=== PATIENT | male | born 1965 | race Caucasian/White ===

== ENCOUNTER 2022-03-27 12:50 | Emergency (ER) | payer OTHER, SELFPAY ==
[2022-03-27] VITALS (8 sets, daily range): BP systolic 119–133; BP diastolic 80–93; PULSE 70–84; RESP 18–22; TEMP 36; O2SAT 100; BMI 23.0
[2022-03-27] MEDS: NITROGLYCERIN 0.4 MG TAB.SUBL SUBLINGUAL (13:03)
--- NOTE | 2022-03-27 13:03 | CRLHL7_ITS ---
For Patients: As a result of the 21st Century Cures Act, medical imaging exams and procedure reports are released immediately into your electronic medical record. You may view this report before your referring provider. If you have questions, please contact your health care provider. INDICATION: CHEST PAIN, LEFT LEG PAIN TECHNIQUE: CT chest without contrast and CT chest, abdomen and pelvis acquired with 95cc ISOVUE 370 IV contrast, dissection protocol. COMPARISON: None. FINDINGS: CHEST: Cardiovascular structures: The unenhanced images demonstrate no evidence of aortic intramural hematoma. Subtle crescent-shaped area of hypoattenuation near the aortic root (series 6, image 103). This is favored to represent pulsation artifact and not a true dissection. However, if there is further clinical concern EKG gated re-imaging could be considered. Otherwise, the entire aorta is normal in caliber and there is no sign of aortic dissection. Heart size is normal. Left chest wall cardiac device with leads in place. Mediastinum and katey: No mass or adenopathy. Lungs and pleura: Lungs are clear. No pleural effusions. Mild pulmonary emphysema. Chest wall and axilla: No mass or adenopathy. Bones: Unremarkable for age. ABDOMEN AND PELVIS: Liver: Unremarkable. Gallbladder and bile ducts: Unremarkable. Pancreas: Unremarkable. Spleen: Unremarkable. Adrenal glands: Unremarkable. Kidneys: Bilateral nonobstructing renal calculi with the largest on the left measuring 8 mm. . GI tract: Unremarkable. Vascular structures: Abdominal aorta is of normal caliber without evidence of dissection. Mild scattered atherosclerosis. Imaged portions of the left femoral arterial system are patent and normal caliber.. Lymph nodes: Unremarkable. Miscellaneous: Unremarkable. No free air or significant free fluid. Pelvic Organs: Unremarkable. Bones: Milder spondylosis of the lumbar spine. Bilateral L5 sacralization. IMPRESSION: Subtle crescent-shaped area of hypoattenuation near the aortic root (series 6, image 103). This is favored to represent pulsation artifact and not a true dissection. However, if there is further clinical concern EKG gated re-imaging of SAMI could be considered. Otherwise, the entire aorta is normal in caliber and there is no sign of aortic dissection. Mild pulmonary emphysema. Bilateral nonobstructing renal calculi with the largest on the left measuring 8 mm. Please note that all CT scans at this facility use dose modulation, iterative reconstruction, and/or weight-based dosing when appropriate to reduce radiation dose to as low as reasonably achievable. Dictated by Mitchel Mcgarry MD @ 03/27/2022 2:11:02 PM (Electronically Signed)
[2022-03-27] MEDS: MORPHINE 4 MG/ML INJ IVP (13:05)
[2022-03-27] MEDS: LORazepam 2 MG/ML inj 0.5 MG IVP ×2 (13:07→15:36)
--- NOTE | 2022-03-27 13:07 | ED_ITS ---
HPI - Chest Pain General Time Seen by Provider: 12:50 Date Seen: 03/27/22 Chief Complaint: Chest Pain Stated Complaint: chest pain Time Seen by Provider: 03/27/22 12:51 Source: patient, EMS, RN notes reviewed and old records reviewed Mode of arrival: EMS Limitations: no limitations History of Present Illness HPI narrative: Hayden is a very pleasant 57-year-old gentleman status post AL x2 and defibrillator placement who is brought to the emergency room for chest pain. Patient noted the onset of shortness of breath this morning with associated left anterior chest pain with radiation into the neck. Patient was noted to have 2 episodes of emesis upon his arrival here. He had been given nitro x2 with relief only on the 1st nitro tablet. He was also given morphine 4 mg. Patient thinks that the initial nitro worked almost immediately and that the oxygen he has in place right now is also helping. He agrees that he has new pain today radiating into his left leg. He denies any recent injury. As we are speaking he thinks that his chest pain is improving but states there is still tightness there at this time. In addition patient received aspirin 324 mg p.o.. Patient notes no unusual activity recently. He states he did mow the lawn last night and did have 6 beers. He notes that he has recently gotten out of treatment for alcohol use and that he has ?been struggling?. MD complaint: chest pain Pertinent past history: coronary artery disease and prior AL Onset (ago): minute(s) Timing of current episode: constant Onset: during rest Pain location: left chest Pain radiation: neck Severity: moderate Quality: tightness Relieving factors: nitroglycerin Related Data Home Medications Medication Instructions Recorded Confirmed Claritin 03/27/22 amlodipine 10 mg tablet mg 03/27/22 aspirin 81 mg chewable tablet 03/27/22 fluoxetine 20 mg capsule mg 03/27/22 naltrexone 50 mg tablet mg 03/27/22 ondansetron 8 mg disintegrating mg 03/27/22 tablet trazodone 100 mg tablet mg 03/27/22 Allergies Allergy/AdvReac Type Severity Reaction Status Date / Time No Known Drug Allergies Allergy Verified 03/27/22 13:21 Review of Systems Status of ROS Reports: 10 or more systems reviewed and unremarkable except as noted in History and below Const Denies: fever or chills Eyes Denies: change in vision ENMT Reports: neck pain; Denies: throat pain or difficulty swallowing Cardio Reports: chest pain and shortness of breath with exertion; Denies: swelling of feet/ankles Resp Reports: shortness of breath; Denies: cough or wheezing GI Denies: difficulty swallowing Denies: painful urination Musculo Reports: neck pain; Denies: back pain Neuro Reports: other (Left leg pain); Denies: headache or weakness in extremities Endo Denies: excessive urination or excessive thirst Allergy/Immuno Denies: wheezing PFSH PFSH Social History Smoking Status: Current every day smoker How often do you have a drink containing alcohol: 4 or more times a week AUDIT-C Alcohol total score: 4 Non-prescribed substance use: denies use Exam Const Vital Signs, click to edit/add: Vital Signs - 24 hr 03/27/22 13:06 03/27/22 13:00 03/27/22 13:05 Temperature 96.8 F L Pulse Rate [Right Pulse Oximeter] 73 70 81 Respiratory Rate 18 22 Blood Pressure [Left Upper Arm] 119/80 127/84 128/80 Pulse Oximetry 100 100 100 Oxygen Delivery Method Nasal Cannula Nasal Cannula Nasal Cannula 03/27/22 13:23 03/27/22 13:25 03/27/22 13:30 Temperature Pulse Rate [Right Pulse Oximeter] 84 84 84 Respiratory Rate 18 18 18 Blood Pressure [Left Upper Arm] 133/93 H 132/81 129/85 Pulse Oximetry 100 100 100 Oxygen Delivery Method Nasal Cannula Nasal Cannula Nasal Cannula 03/27/22 13:35 03/27/22 13:40 Temperature Pulse Rate [Right Pulse Oximeter] 78 82 Respiratory Rate 18 18 Blood Pressure [Left Upper Arm] 127/84 129/83 Pulse Oximetry 100 100 Oxygen Delivery Method Nasal Cannula Nasal Cannula Documenting provider has reviewed patient's vital signs: yes Common normals: average body habitus, oriented x3 and no limitations General appearance: cooperative, anxious and diaphoretic [facility] Common normals: normocephalic, head/scalp atraumatic, external ears normal and external nose normal Head and scalp: normocephalic and atraumatic Face and sinus: normal facial exam Nose: external nose normal External ear: external ears normal Eye General eye: normal appearance of both eyes Neck & C-Spine Common normals: full ROM and supple General: normal visual inspection and trachea midline Resp Common normals: normal respiratory effort and clear to auscultation bilaterally Auscultation: clear to auscultation bilaterally Cardio Common normals: regular rate and regular rhythm Rate: regular rate Rhythm: regular rhythm GI Common normals: soft to palpation, non-tender and no masses Palpation: soft Extremity Common normals: full ROM, no joint enlargement, no calf tenderness and no pedal edema Other: Question decreased right lower extremity pedal pulses. Neuro Common normals: oriented x3 Psych Common normals: mental status grossly normal and thought process normal Thought process: normal thought process Skin Common normals: no rashes or lesions noted General skin exam: no rashes or lesions noted Course Course Hospital Course: Given onset of chest pain with reassuring EKG we have made the decision to go through with an aortic dissection protocol. Prior to this patient will receive morphine 4 mg, 3rd nitroglycerin tablet as well as Ativan 0.5 mg. Patient notes increased alcohol use after having gone through recent treatment so certainly we should consider peptic ulcer or other GI pathology. Will also consider non STEMI as well. Will obtain COVID swab as well as CBC, comprehensive panel, D- dimer, CRP, urinalysis, alcohol level, troponin, EKG. Differential diagnosis also includes but is not limited to esophagitis, biliary colic, alcohol withdrawal, pneumonia, COVID. Reevaluation(s) Reevaluation #1: At this time patient is feeling much improved. CT of the chest shows a questionable area of decreased feeling. Possibly related to aortic pathology. Patient was given an additional 0.5 mg of IV Ativan and we are currently awaiting cardiothoracic consultation from [facility]. We have push the CT for their viewing. Noted 4+ urinary ketones and therefore additional L of fluids is given for a total of 2. Reevaluation #2: At this time patient continues to be pain-free. Consultations Consultation #1: Dr. Ren and Dr. Zaman are both cardiothoracic surgeons at [facility]. I had the pleasure of speaking to them in regards to the CT of the chest that showed questionable abnormality at the aortic root. Given the radiology findings it does not appear that this is a true aortic dissection. I then spoke with Dr. Sahu, cardiology at [facility], who notes that he feels it is safe to give heparin after we discuss the CT but elevating troponins. Unfortunately, unable to accept this patient as they are currently on magenta and patient is not eligible for their waiting list given that we are not in [facility]. Consultation #2: Had the pleasure of speaking to Dr. Cuellar, hospitalist for [facility]. We discussed patient's recent treatment for alcohol, recent alcohol use as well as the results of the CT. At this time because patient is pain-free will hold off from any treatment with heparin. Patient has been accepted by [facility] for hospitalization. Vital Signs Vital signs: Initial Vital Signs Pulse Rate 70 03/27/22 13:00 Pulse Rhythm 03/27/22 13:00 Respiratory Rate 22 03/27/22 13:00 Respiratory Effort Spontaneous 03/27/22 13:00 Respiratory Depth Normal 03/27/22 13:00 Blood Pressure 127/84 03/27/22 13:00 Blood Pressure Mean 98 03/27/22 13:00 Blood Pressure Position Supine 03/27/22 13:00 Pulse Oximetry 100 03/27/22 13:00 Oxygen Delivery Method 03/27/22 13:00 Vital Signs Pulse Rate 70 03/27/22 13:00 Respiratory Rate 22 03/27/22 13:00 Blood Pressure 127/84 03/27/22 13:00 Pulse Oximetry 100 03/27/22 13:00 Oxygen Delivery Method 03/27/22 13:00 Temperature 96.8 F L 03/27/22 13:06 Pulse Rate 82 03/27/22 13:40 Respiratory Rate 18 03/27/22 13:40 Blood Pressure 129/83 03/27/22 13:40 Pulse Oximetry 100 03/27/22 13:40 Oxygen Delivery Method 03/27/22 13:40 MDM - Chest Pain MDM Narrative Medical decision making narrative: 1. Non STEMI-EKGs remain normal but troponin has gone from 0-0.19. Patient received a total of 3 nitroglycerin tablets as well as morphine 4 mg x 2 and aspirin. Patient also received Ativan 0.5 mg x 2. He has been pain-free for a number of hours. I spoke with [facility] who was unable to accept patient. I spoke with both cardiothoracic given the questionable artifact verses abnormality at the aortic root. They do not feel that this is abnormal but is artifact. I also spoke with cardiology who was unable to take the patient. [facility] in [place] was able to accept the patient. At this time will hold off on any heparin or ticagrelor as patient has been pain-free. We are unable to push our CT 2 their system but will instead give a disc to take with. 2. Alcohol use-patient has discussed with nursing staff that he has been drinking beer approximately 6 cans a day for 5 days. Patient was not tachycardic nor did he have hypertension during his stay here but I do wonder if he does have some mild withdrawal per going on. Again improved after Ativan. 3. Disposition-ground ambulance ALS transfer to [facility]. Medical Records Data Attestation: I reviewed the patient's medical records. Lab Data Attestation: I reviewed the patient's lab results. Labs: Lab Results 03/27/22 03/27/22 03/27/22 Range/Units 13:00 13:01 13:01 WBC 12.73 H (4.50-11.00) K/uL RBC 4.97 (4.30-5.90) m/uL Hgb 16.4 (13.5-17.5) gm/dL Hct 47.3 (37.0-53.0) % MCV 95 (80-100) fL MCH 33 (26-34) pg MCHC 35 (32-36) gm/dL RDW Coeff of Navin 15.6 H (11.5-15.5) % Plt Count 319 (140-440) K/uL Neut % (Auto) 80.7 H (42.0-72.0) % Lymph % (Auto) 13.7 L (20-44) % [place] % (Auto) 5.1 (0.0-11.0) % Eos % (Auto) 0.0 (0.0-7.0) % Baso % (Auto) 0.3 (0.0-3.0) % Neut # (Auto) 10.30 H (1.7-7.0) K/uL Lymph # (Auto) 1.70 (0.90-2.90) K/uL [place] # (Auto) 0.60 (0.00-0.90) K/UL Eos # (Auto) 0.00 (0.00-0.50) K/uL Baso # (Auto) 0.00 (0.00-0.30) K/uL Abs Immat Gran (auto) 0.03 (0.00-0.30) K/uL D-Dimer Quant (PE/DVT) 0.44 (0.00-0.50) ug/ml Sodium (135-149) mmol/L Potassium (3.6-5.1) mmol/L Chloride (96-114) mmol/L Carbon Dioxide (20-32) mmol/L BUN (7-30) mg/dL Creatinine (0.5-1.5) mg/dL Estimated Creat Clear Estimated GFR ml/min Glucose (60-115) mg/dL Calcium (8.4-10.6) mg/dL Total Bilirubin (0.1-1.5) mg/dL AST (12-35) U/L ALT (4-50) U/L Alkaline Phosphatase (40-150) U/L C-Reactive Protein (0.5-1.0) mg/dL Total Protein (6.0-8.3) g/dL Albumin (3.3-5.0) g/dL Urine Color (Yellow) Urine Appearance (Clear) Urine pH (5.0-8.5) Ur Specific [place] (1.000-1.030) Urine Protein (Negative) Urine Glucose (UA) (Negative) Urine Ketones (Negative) Urine Blood (Negative) Urine Nitrite (Negative) Urine Bilirubin (Negative) Urine Urobilinogen (0.2-1.0) Ur Leukocyte Esterase (Negative) Urine RBC (0-2) Urine WBC (0-5) Ur Squamous Epith Cells (None-Few) Urine Bacteria (None) Ethyl Alcohol (0.01-0.03) % SARS-CoV-2 (PCR) (Negative) Influenza Type A (PCR) (Negative) Influenza Type B (PCR) (Negative) POC Troponin I 0.00 L (0.01-0.04) ng/ml 03/27/22 03/27/22 03/27/22 Range/Units 13:01 13:55 15:05 WBC (4.50-11.00) K/uL RBC (4.30-5.90) m/uL Hgb (13.5-17.5) gm/dL Hct (37.0-53.0) % MCV (80-100) fL MCH (26-34) pg MCHC (32-36) gm/dL RDW Coeff of Navin (11.5-15.5) % Plt Count (140-440) K/uL Neut % (Auto) (42.0-72.0) % Lymph % (Auto) (20-44) % [place] % (Auto) (0.0-11.0) % Eos % (Auto) (0.0-7.0) % Baso % (Auto) (0.0-3.0) % Neut # (Auto) (1.7-7.0) K/uL Lymph # (Auto) (0.90-2.90) K/uL [place] # (Auto) (0.00-0.90) K/UL Eos # (Auto) (0.00-0.50) K/uL Baso # (Auto) (0.00-0.30) K/uL Abs Immat Gran (auto) (0.00-0.30) K/uL D-Dimer Quant (PE/DVT) (0.00-0.50) ug/ml Sodium 138 (135-149) mmol/L Potassium 4.2 (3.6-5.1) mmol/L Chloride 103 (96-114) mmol/L Carbon Dioxide 13 L (20-32) mmol/L BUN 16 (7-30) mg/dL Creatinine 1.0 (0.5-1.5) mg/dL Estimated Creat Clear 84.67 Estimated GFR 88 ml/min Glucose 113 (60-115) mg/dL Calcium 9.3 (8.4-10.6) mg/dL Total Bilirubin 0.7 (0.1-1.5) mg/dL AST 53 H (12-35) U/L ALT 50 (4-50) U/L Alkaline Phosphatase 134 (40-150) U/L C-Reactive Protein < 0.5 L (0.5-1.0) mg/dL Total Protein 7.3 (6.0-8.3) g/dL Albumin 4.6 (3.3-5.0) g/dL Urine Color Yellow (Yellow) Urine Appearance Clear (Clear) Urine pH 6.0 (5.0-8.5) Ur Specific [place] 1.015 (1.000-1.030) Urine Protein Negative (Negative) Urine Glucose (UA) Negative (Negative) Urine Ketones 4+ A (Negative) Urine Blood Trace-intact A (Negative) Urine Nitrite Negative (Negative) Urine Bilirubin Negative (Negative) Urine Urobilinogen 0.2 (0.2-1.0) Ur Leukocyte Esterase Negative (Negative) Urine RBC 0-2 (0-2) Urine WBC 0-2 (0-5) Ur Squamous Epith Cells None (None-Few) Urine Bacteria None (None) Ethyl Alcohol < 0.01 L (0.01-0.03) % SARS-CoV-2 (PCR) Negative SARS-CoV-2 (Negative) Influenza Type A (PCR) Negative PCR FLU A (Negative) Influenza Type B (PCR) Negative PCR FLU B (Negative) POC Troponin I (0.01-0.04) ng/ml 03/27/22 Range/Units 15:20 WBC (4.50-11.00) K/uL RBC (4.30-5.90) m/uL Hgb (13.5-17.5) gm/dL Hct (37.0-53.0) % MCV (80-100) fL MCH (26-34) pg MCHC (32-36) gm/dL RDW Coeff of Navin (11.5-15.5) % Plt Count (140-440) K/uL Neut % (Auto) (42.0-72.0) % Lymph % (Auto) (20-44) % [place] % (Auto) (0.0-11.0) % Eos % (Auto) (0.0-7.0) % Baso % (Auto) (0.0-3.0) % Neut # (Auto) (1.7-7.0) K/uL Lymph # (Auto) (0.90-2.90) K/uL [place] # (Auto) (0.00-0.90) K/UL Eos # (Auto) (0.00-0.50) K/uL Baso # (Auto) (0.00-0.30) K/uL Abs Immat Gran (auto) (0.00-0.30) K/uL D-Dimer Quant (PE/DVT) (0.00-0.50) ug/ml Sodium (135-149) mmol/L Potassium (3.6-5.1) mmol/L Chloride (96-114) mmol/L Carbon Dioxide (20-32) mmol/L BUN (7-30) mg/dL Creatinine (0.5-1.5) mg/dL Estimated Creat Clear Estimated GFR ml/min Glucose (60-115) mg/dL Calcium (8.4-10.6) mg/dL Total Bilirubin (0.1-1.5) mg/dL AST (12-35) U/L ALT (4-50) U/L Alkaline Phosphatase (40-150) U/L C-Reactive Protein (0.5-1.0) mg/dL Total Protein (6.0-8.3) g/dL Albumin (3.3-5.0) g/dL Urine Color (Yellow) Urine Appearance (Clear) Urine pH (5.0-8.5) Ur Specific [place] (1.000-1.030) Urine Protein (Negative) Urine Glucose (UA) (Negative) Urine Ketones (Negative) Urine Blood (Negative) Urine Nitrite (Negative) Urine Bilirubin (Negative) Urine Urobilinogen (0.2-1.0) Ur Leukocyte Esterase (Negative) Urine RBC (0-2) Urine WBC (0-5) Ur Squamous Epith Cells (None-Few) Urine Bacteria (None) Ethyl Alcohol (0.01-0.03) % SARS-CoV-2 (PCR) (Negative) Influenza Type A (PCR) (Negative) Influenza Type B (PCR) (Negative) POC Troponin I 0.19 H (0.01-0.04) ng/ml Imaging Data CT Chest/Ab/Pelvis: Attestation: I have reviewed the pertinent imaging results. Radiologist's impression: MPRESSION: Subtle crescent-shaped area of hypoattenuation near the aortic root (series 6, image 103). This is favored to represent pulsation artifact and not a true dissection. However, if there is further clinical concern EKG gated re-imaging of SAMI could be considered. Otherwise, the entire aorta is normal in caliber and there is no sign of aortic dissection. Mild pulmonary emphysema. Bilateral nonobstructing renal calculi with the largest on the left measuring 8 mm. ECG Data Attestation: I personally reviewed and interpreted this ECG as follows: ECG interpretation date: 03/27/22 Prior ECG tracings: available for review Interpretation: EKG 1. 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 No acute ST or T-wave changes noted. EKG 2. By my read shows sinus rhythm at a rate of 82. No acute ST or T-wave changes are noted. Critical Care Time Critical Care Time Total Critical Care Time in Minutes: 60 Discharge Plan Discharge Prescriptions: No Action naltrexone 50 mg tablet Label Comments: TAKE 1 TABLET BY MOUTH EVERY NIGHT AT BEDTIME ondansetron 8 mg tablet,disintegrating Label Comments: DISSOLVE ONE TABLET ON THE TONGUE THREE TIMES DAILY NEEDED trazodone 100 mg tablet Label Comments: TAKE 1-2 TABLETS BY MOUTH EVERY NIGHT AT BEDTIME NEEDED amlodipine 10 mg tablet Label Comments: TAKE 1 TABLET BY MOUTH EVERY DAY aspirin 81 mg tablet,chewable Label Comments: CHEW AND SWALLOW 1 TABLET DAILY IN THE MORNING fluoxetine 20 mg capsule Label Comments: TAKE 1 CAPSULE BY MOUTH EVERY DAY Claritin
[2022-03-27 13:28] LABS: Albumin* 4.6 g/dL (3.3-5.0); Chloride* 103 mmol/L (96-114); Sodium* 138 mmol/L (135-149)
[2022-03-27 13:29] LABS: Potassium* 4.2 mmol/L (3.6-5.1)
[2022-03-27 13:30] LABS: Est. Creatinine Clearance* 84.67; Estimated Glomerular Filt Rate 88 ml/min
[2022-03-27 13:31] LABS: Alanine Aminotransferase* 50 U/L (4-50); Alkaline Phosphatase* 134 U/L (40-150); Aspartate Amino Transferase* 53 U/L (12-35); Bilirubin Total* 0.7 mg/dL (0.1-1.5); Blood Urea Nitrogen* 16 mg/dL (7-30); Carbon Dioxide* 13 mmol/L (20-32); Total Protein* 7.3 g/dL (6.0-8.3)
[2022-03-27 13:32] LABS: Calcium* 9.3 mg/dL (8.4-10.6); Glucose* 113 mg/dL (60-115)
[2022-03-27 13:34] LABS: D Dimer Quantitative* 0.44 ug/ml (0.00-0.50)
[2022-03-27 13:56] LABS: C Reactive Protein* < 0.5 mg/dL (0.5-1.0); Ethanol* < 0.01 % (0.01-0.03)
--- NOTE | 2022-03-27 14:07 | ED.NURSE ---
pt sister name, Germaine Suresh [phone] OK to speak with, OK'd by pt
[2022-03-27 14:42] LABS: Basophils Percent Auto 0.3 % (0.0-3.0); Hematocrit 47.3 % (37.0-53.0); Hemoglobin* 16.4 gm/dL (13.5-17.5); Immature Granulocytes Abs Auto 0.03 K/uL (0.00-0.30); Lymphocytes Percent Auto 13.7 % (20-44); Mean Corpuscular HGB Conc 35 gm/dL (32-36); Mean Corpuscular Hemoglobin 33 pg (26-34); Mean Corpuscular Volume 95 fL (80-100); Monocytes Percent Auto 5.1 % (0.0-11.0); Neutrophils Percent Auto 80.7 % (42.0-72.0); Platelet Count* 319 K/uL (140-440); RDW Coefficient of Variation % 15.6 % (11.5-15.5); Red Blood Count 4.97 m/uL (4.30-5.90); White Blood Count* 12.73 K/uL (4.50-11.00)
[2022-03-27 14:48] LABS: Slide Review Reflex No
[2022-03-27 15:00] LABS: PCR FLU A Negative PCR FLU A (Negative); PCR FLU B Negative PCR FLU B (Negative)
[2022-03-27 15:01] LABS: SARS PCR* Negative SARS-CoV-2 (Negative)
[2022-03-27 15:15] LABS: Appearance Urine Clear (Clear); Bilirubin Urine Negative (Negative); Blood Urine Trace-intact (Negative); Color Urine Yellow (Yellow); Glucose Urine Negative (Negative); Ketones Urine 4+ (Negative); Leukocyte Esterase Urine Negative (Negative); Nitrite Urine Negative (Negative); Protein Urine Negative (Negative); Specific Gravity Urine 1.015 (1.000-1.030); Urobilinogen Urine 0.2 (0.2-1.0)
[2022-03-27 15:30] LABS: RBC Urine 0-2 (0-2); WBC Urine 0-2 (0-5)
[2022-03-27 15:35] LABS: Troponin, Point-of-Care* 0.19 ng/ml (0.01-0.04)
--- NOTE | 2022-03-27 15:38 | ED.NURSE ---
dr miller aware of elevated trop 0.19
--- NOTE | 2022-03-27 19:09 | ED.NURSE ---
pt belongings with patient during transport by EMS.
--- NOTE | 2022-03-27 19:11 | ED.NURSE ---
pt taken to [facility] via EMS.
== END 2022-03-27 19:11 | disposition short-term general hospital (02) ==
PROVIDERS: Emergency Provider Family Medicine; PCP Family Medicine
DX: I21.4 Non-ST elevation (NSTEMI) myocardial infarction (principal); I25.2 Old myocardial infarction; I25.119 Atherosclerotic heart disease of native coronary artery with unspecified angina pectoris; Z95.810 Presence of automatic (implantable) cardiac defibrillator
CPT/HCPCS: 36415; 71270; 74177; 80053; 81003; 81015; 82077; 84484; 85025; 85379; 86140; 87502; 87635; 93005; 99285; 99291; A0425; A0427; A9270; J2060; J2270; Q9967

== ENCOUNTER 2022-08-11 15:31 | Outpatient (CLI) | payer OTHER, SELFPAY ==
[2022-08-11 10:03] LABS: Albumin* 4.4 g/dL (3.3-5.0); Chloride* 107 mmol/L (96-114); Potassium* 4.5 mmol/L (3.6-5.1); Sodium* 142 mmol/L (135-149)
[2022-08-11 10:05] LABS: Cholesterol* 232 mg/dL (90-199); Creatinine* 0.7 mg/dL (0.5-1.5); Estimated Glomerular Filt Rate 108 ml/min
[2022-08-11 10:06] LABS: Alanine Aminotransferase* 26 U/L (4-50); Alkaline Phosphatase* 79 U/L (40-150); Aspartate Amino Transferase* 29 U/L (12-35); Bilirubin Total* 0.6 mg/dL (0.1-1.5); Blood Urea Nitrogen* 13 mg/dL (7-30); Carbon Dioxide* 28 mmol/L (20-32); Glucose* 96 mg/dL (60-115); Total Protein* 6.7 g/dL (6.0-8.3); Triglycerides* 86 mg/dL (40-149)
[2022-08-11 10:07] LABS: Calcium* 9.4 mg/dL (8.4-10.6); HDL Cholesterol* 57 mg/dL (>=40); LDL Cholesterol Calculated 158 mg/dL (<100)
== END 2022-08-11 15:32 | disposition home or self-care (01) ==
PROVIDERS: PCP Family Medicine; Visit Provider Family Medicine
DX: I10 Essential (primary) hypertension (principal); Z13.6 Encounter for screening for cardiovascular disorders
CPT/HCPCS: 80053; 80061

== ENCOUNTER 2022-10-06 11:10 | Outpatient (CLI) | payer OTHER, SELFPAY | END 2022-10-06 11:11 | disposition home or self-care (01) | LOC: NFLDREF 11:11 | PROVIDERS: PCP Family Medicine; Visit Provider Family Medicine | DX: Z12.5 Encounter for screening for malignant neoplasm of prostate (principal) | CPT/HCPCS: 84153 ==

== ENCOUNTER 2023-09-05 07:46 | Outpatient (CLI) | payer OTHER, SELFPAY | END 2023-09-05 07:47 | disposition home or self-care (01) | PROVIDERS: PCP Family Medicine; Visit Provider Family Medicine | DX: E78.2 Mixed hyperlipidemia (principal); R79.89 Other specified abnormal findings of blood chemistry; C61 Malignant neoplasm of prostate; I10 Essential (primary) hypertension; Z13.0 Encounter for screening for diseases of the blood and blood-forming organs and certain disorders involving the immune mechanism | CPT/HCPCS: 80048; 80061; 80076; 84153; 85025 ==

== ENCOUNTER 2024-07-21 14:00 | Outpatient (CLI) | payer MEDICAID, SELFPAY | END 2024-07-21 14:01 | disposition home or self-care (01) | PROVIDERS: PCP Family Medicine; Visit Provider Family Medicine | DX: E78.2 Mixed hyperlipidemia (principal); I10 Essential (primary) hypertension; Z85.46 Personal history of malignant neoplasm of prostate; Z12.5 Encounter for screening for malignant neoplasm of prostate | CPT/HCPCS: 80048; 80061; 84153; 84460 ==

== ENCOUNTER 2024-10-01 10:15 | Outpatient (CLI) | payer MEDICAID, SELFPAY | END 2024-10-01 10:16 | disposition home or self-care (01) | PROVIDERS: PCP Family Medicine; Visit Provider Family Medicine | DX: R79.89 Other specified abnormal findings of blood chemistry (principal); I10 Essential (primary) hypertension; K92.1 Melena | CPT/HCPCS: 80053; 83690; 85025 ==

== ENCOUNTER 2024-10-16 12:28 | Outpatient (CLI) | payer MEDICAID, SELFPAY ==
--- NOTE | 2024-10-16 14:27 | P.ANES_ITS ---
Anesthesia Charges Start Date/Time Anesthesia Start Date: 10/16/24 Anesthesia Start Time: 14:06 Stop Date/Time Anesthesia Stop Date: 10/16/24 Anesthesia Stop Time: 14:22 Coding CPT Codes CPT Codes: ANES UPR GI NDSC PX NOS - 08247 ([id number]) P4 - PT W/SEV SYS DIS THREAT LIFE, QX - TALENT ACQUISITION ASSOCIATE SVC W/ MD MED DIRECTION, QK - GLASS CHECKER 2-4 CNCRNT ANES PROC
--- NOTE | 2024-10-16 14:27 | W.ANESCHARGE ---
Anesthesia Charges Start Date/Time Anesthesia Start Date: 10/16/24 Anesthesia Start Time: 14:06 Stop Date/Time Anesthesia Stop Date: 10/16/24 Anesthesia Stop Time: 14:22 Coding CPT Codes CPT Codes: ANES UPR GI NDSC PX NOS - 12561 ([id number]) P4 - PT W/SEV SYS DIS THREAT LIFE, QX - STACKER DRIVER SVC W/ MD MED DIRECTION, QK - TOP TRIMMER 2-4 CNCRNT ANES PROC
--- NOTE | 2024-10-16 14:45 | P.ANES_ITS ---
Anesthesia Charges Start Date/Time Anesthesia Start Date: 10/16/24 Anesthesia Start Time: 14:06 Stop Date/Time Anesthesia Stop Date: 10/16/24 Anesthesia Stop Time: 14:22 Coding CPT Codes CPT Codes: ANES UPR GI NDSC PX NOS - 50757 ([id number]) QK - GUITAR REPAIR TECHNICIAN 2-4 CNCRNT ANES PROC, QX - MUCK HAULER SVC W/ MD MED DIRECTION, P4 - PT W/SEV SYS DIS THREAT LIFE
--- NOTE | 2024-10-16 14:45 | W.ANESCHARGE ---
Anesthesia Charges Start Date/Time Anesthesia Start Date: 10/16/24 Anesthesia Start Time: 14:06 Stop Date/Time Anesthesia Stop Date: 10/16/24 Anesthesia Stop Time: 14:22 Coding CPT Codes CPT Codes: ANES UPR GI NDSC PX NOS - 30589 ([id number]) QK - ANALYST MARKET INTELLIGENCE 2-4 CNCRNT ANES PROC, QX - HEEL WHEELER SVC W/ MD MED DIRECTION, P4 - PT W/SEV SYS DIS THREAT LIFE
== END 2024-10-16 12:29 | disposition home or self-care (01) ==
PROVIDERS: PCP Family Medicine; Visit Provider Surgery
DX: K92.1 Melena (principal); K31.89 Other diseases of stomach and duodenum; K22.89 Other specified disease of esophagus
CPT/HCPCS: 00731; 43239; 88305; J2704; J3490

== ENCOUNTER 2025-02-24 11:24 | Outpatient (CLI) | payer MEDICAID, SELFPAY | END 2025-02-24 11:25 | disposition home or self-care (01) | LOC: FBOREF 11:26 | PROVIDERS: PCP Family Medicine; Visit Provider Family Medicine | DX: Z85.46 Personal history of malignant neoplasm of prostate (principal) | CPT/HCPCS: 84153 ==